=== PATIENT | male | born 1930 | race Hispanic/Latino ===

== ENCOUNTER 2021-03-08 17:31 | Emergency (ER) | payer MEDICARE ==
--- NOTE | 2021-03-08 18:04 | Emergency Department Report ---
ED General Adult HPI - General Chief complaint: High BP Stated complaint: HYPERTENSION Time Seen by Provider: 03/08/21 17:49 Source: patient Mode of arrival: Ambulatory Limitations: No Limitations - History of Present Illness Initial comments: This is a 89-year-old male nontoxic, well nourished in appearance, no acute signs of distress presents to the ED with c/o of hypertension. Patient seen his bindery production manager yesterday and was placed on metoprolol blood pressure medication and was concerned due to his blood pressure being 185 over 80s. Patient stated this only happened one episode today otherwise his blood pressure was in 140s to 150s over 80s. Patient stated had echocardiogram yesterday by his bindery production manager that was told that was within normal limits. Patient currently otherwise denies any symptoms or complaints. Patient denies loss of consciousness, head trauma, ecchymosis, chest pain, short of breath, headache, blurry vision, fever, chills, stiff neck, decreased range of motion, bladder or bowel instability, diaphoresis, nausea, vomiting, abdominal pain, joint pain or swelling, visual changes, chest wall tenderness, numbness or tingling sensation extremity. Patient agrees to good rectal tone with no bladder overflow. Patient is currently ambulatory with no assistance. Patient denies any allergies. Severity scale (0 -10): 0 Improves with: none Worsens with: none Associated Symptoms: denies other symptoms. denies: confusion, chest pain, cough, diaphoresis, fever/chills, headaches, loss of appetite, malaise, nausea/vomiting, rash, seizure, shortness of breath, syncope, weakness - Related Data Previous Rx's Medication Instructions Recorded Last Taken Type Aspirin EC [Halfprin EC] 81 mg PO QDAY #30 tablet. 03/30/13 Unknown Rx Atorvastatin [Lipitor] 40 mg PO QHS #30 tab 03/30/13 Unknown Rx Clindamycin [Clindamycin CAP] 300 mg PO Q8H #21 cap 03/30/13 Unknown Rx amLODIPine 5 mg PO DAILY #30 tab 03/30/13 Unknown Rx Allergies Allergy/AdvReac Type Severity Reaction Status Date / Time No Known Allergies Allergy Unverified 03/08/21 17:38 ED Review of Systems ROS: Stated complaint: HYPERTENSION Other details as noted in HPI Comment: All other systems reviewed and negative Constitutional: denies: chills, fever Eyes: denies: eye pain, eye discharge, vision change ENT: denies: ear pain, throat pain Respiratory: denies: cough, shortness of breath, wheezing Cardiovascular: denies: chest pain, palpitations Endocrine: no symptoms reported Gastrointestinal: denies: abdominal pain, nausea, diarrhea Genitourinary: denies: urgency, dysuria Musculoskeletal: denies: back pain, joint swelling, arthralgia Skin: denies: rash, lesions Neurological: denies: headache, weakness, paresthesias Psychiatric: denies: anxiety, depression Hematological/Lymphatic: denies: easy bleeding, easy bruising ED Past Medical Hx - Past Medical History Hx Hypertension: Yes - Social History Smoking Status: Never Smoker - Medications Home Medications: Home Medications Medication Instructions Recorded Confirmed Last Taken Type Aspirin EC [Halfprin EC] 81 mg PO QDAY #30 tablet.dr 03/30/13 Unknown Rx Atorvastatin [Lipitor] 40 mg PO QHS #30 tab 03/30/13 Unknown Rx Clindamycin [Clindamycin CAP] 300 mg PO Q8H #21 cap 03/30/13 Unknown Rx amLODIPine 5 mg PO DAILY #30 tab 03/30/13 Unknown Rx ED Physical Exam - General Limitations: No Limitations General appearance: alert, in no apparent distress - Head Head exam: Present: atraumatic, normocephalic - Eye Eye exam: Present: normal appearance, PERRL, EOMI - Neck Neck exam: Present: normal inspection, full ROM. Absent: lymphadenopathy - Respiratory Respiratory exam: Present: normal lung sounds bilaterally. Absent: respiratory distress, wheezes, rales, rhonchi, stridor, chest wall tenderness, accessory muscle use, decreased breath sounds, prolonged expiratory - Cardiovascular Cardiovascular Exam: Present: regular rate, normal rhythm, normal heart sounds. Absent: bradycardia, tachycardia, irregular rhythm, systolic murmur, diastolic murmur, rubs, gallop - GI/Abdominal GI/Abdominal exam: Present: soft, normal bowel sounds. Absent: distended, tenderness, guarding, rebound, rigid, bruit, pulsatile mass - Extremities Exam Extremities exam: Present: normal inspection, full ROM - Back Exam Back exam: Present: normal inspection, full ROM. Absent: tenderness, CVA tenderness (R), CVA tenderness (L), muscle spasm, paraspinal tenderness, vertebral tenderness, rash noted - Neurological Exam Neurological exam: Present: alert, oriented X3, normal gait - Psychiatric Psychiatric exam: Present: normal affect, normal mood - Skin Skin exam: Present: warm, dry, intact, normal color. Absent: rash ED Course Vital Signs 03/08/21 17:34 Temperature 98.7 F Pulse Rate 72 Respiratory 16 Rate Blood Pressure 153/78 [Left] O2 Sat by Pulse 99 Oximetry - Reevaluation(s) Reevaluation #1: 03/08/21 18:01 Patient is speaking in full sentences with no signs of distress noted. ED Medical Decision Making - Medical Decision Making 89-year-old male that presents with hypertension. Patient is stable and was examined by me. Currently blood pressure is not significantly elevated. Patient was instructed to continue taking medication as prescribed and if still has concerns to call his bindery production manager tomorrow. According to ACEP: (1) in ED patients with asymptomatic markedly elevated blood pressure, routine screening for acute target organ injury (eg, serum creatinine, urinalysis, ECG) is not required. (1) In patients with asymptomatic markedly elevated blood pressure, routine ED medical intervention is not required. Patient was instructed to follow-up with a primary care and bindery production manager doctor in 3-5 days or if symptoms worsen and continue return to emergency room as soon as possible. At time of discharge, the patient does not seem toxic or ill in appearance. No acute signs of distress noted. Patient agrees to discharge treatment plan of care. No further questions noted by the patient. Critical care attestation.: If time is entered above; I have spent that time in minutes in the direct care of this critically ill patient, excluding procedure time. ED Disposition Clinical Impression: Hypertension Qualifiers: Hypertension type: unspecified Qualified Code(s): I10 - Essential (primary) hypertension Disposition: 01 HOME / SELF CARE / HOMELESS Is pt being admited?: No Does the pt Need Aspirin: No Condition: Stable Instructions: Hypertension (ED), Hypertension, Adult, [id number] Additional Instructions: Follow-up with a primary care and bindery production manager doctor in 3-5 days or if symptoms worsen and continue return to emergency room as soon as possible. Continue taking medication as prescribed by your bindery production manager. Referrals: PRIMARY MD JACK [Referring] - 3-5 Days [facility] [Provider Group] - 3-5 Days Time of Disposition: 18:03
[2021-03-08 18:20] VITALS: BP 175/77
== END 2021-03-08 18:26 | disposition home or self-care (01) ==
LOC: ED 17:31
DX: I10 Essential (primary) hypertension (principal)
CPT/HCPCS: 99283